=== PATIENT | female | born 1940 ===

== ENCOUNTER 2018-07-31 08:31 | Outpatient (CLI) | payer MEDICARE | END 2018-07-31 08:32 | disposition home or self-care (01) | LOC: C.VASC 08:31 ==

== ENCOUNTER 2018-08-02 07:54 | Outpatient (CLI) | payer MEDICARE | END 2018-08-02 07:55 | disposition home or self-care (01) | LOC: C.MRIC 07:54 | DX: R42 Dizziness and giddiness (principal) ==